=== PATIENT | male | born 1970 | race Caucasian/White ===

== ENCOUNTER 2016-07-15 14:33 | Emergency (ER) | payer BC ==
[~2016-07-15] VITALS: Ht 177.8 cm; Wt 76.2 kg
[~2016-07-15 14:33] MED LIST: ATEN-173 PO; OMEP20TA PO
[2016-07-15 14:37] VITALS: BP 171/97; PULSE 106; TEMP 36.8; O2SAT 100; Ht 177.8 cm; Wt 76.2 kg
--- NOTE | 2016-07-15 15:03 | DIAGNOSTIC IMAGING REPORT ---
RIGHT SHOULDER 3 VIEWS CLINICAL HISTORY: Right shoulder pain. FINDINGS: 3 views of the right shoulder are obtained. No prior studies are available for comparison at the time of dictation. The skeletal structures are well mineralized. No fracture is seen. The glenohumeral and acromioclavicular joints are well-maintained. Minimal arthritic change is seen in the greater tuberosity of the humeral head. The overlying soft tissues are within normal limits. Partially imaged right upper lobe lung parenchyma appears clear. IMPRESSION: No acute bony abnormality is seen in the right shoulder. Electronically signed by: Joon Tafoya M.D. 07/15/2016 3:01 PM Dictated Date/Time: 07/15/2016 3:00 PM
[2016-07-15] MEDS ORDERED: TRAM-10 PO (15:20)
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
== END 2016-07-15 15:27 | disposition home or self-care (01) ==
LOC: C.EDB 14:35 → C.EDD 15:27
DX: M25.511 Pain in right shoulder (principal); I10 Essential (primary) hypertension; D50.9 Iron deficiency anemia, unspecified; F17.200 Nicotine dependence, unspecified, uncomplicated

== ENCOUNTER 2017-06-11 07:32 | Emergency (ER) | payer BC ==
[~2017-06-11] VITALS: Ht 175.3 cm; Wt 76.1 kg
[2017-06-11 07:40] VITALS: TEMP 36.4; Ht 175.3 cm; Wt 76.1 kg
--- NOTE | 2017-06-11 08:16 | DIAGNOSTIC IMAGING REPORT ---
R HAND MIN 3 VIEWS ROUTINE CLINICAL HISTORY: 47 years-old Male presenting with fall on Fri; possible R MC fx. TECHNIQUE: Frontal, oblique, and lateral views of the right hand were obtained. COMPARISON: None. FINDINGS: Ossific fragment along the dorsum at the level of the carpus with overlying soft tissue swelling characteristic of a triquetral fracture. No malalignment. No advanced degenerative change. No radiographic soft tissue abnormality. IMPRESSION: Findings characteristic of a triquetral fracture. No malalignment of the carpus. Electronically signed by: Marcio Macias M.D. 06/11/2017 8:15 AM Dictated Date/Time: 06/11/2017 8:13 AM
[2017-06-11] MEDS ORDERED: HYDR-5688 PO (09:07)
[2017-06-11 09:42] VITALS: BP 164/100; PULSE 94; O2SAT 98
--- NOTE | 2017-06-13 07:39 | EMERGENCY ROOM VISIT NOTE ---
ED Visit Note First contact with patient: 07:46 Chief Complaint: I broke my right arm. History of Present Illness: Mr. Hendrix is a 47-year-old white male who ambulates into the ED reporting of right arm fracture. Patient reports 2 days ago he slipped and fell on ice. He reports she injured his right wrist. He reports he was seen at an urgent care center shortly after the injury and was told he had a fracture in his hand. He reports he was told to come to the emergency department for further evaluation and care. They discharged him in a Velcro like splint. Currently patient is complaining of a sharp and throbbing pain over the posterior aspect of the hand in the area of the fourth and fifth metacarpal. He rates his discomfort 10/10. His pain is nonradiating. His pain worsens with palpation, flexion and extension of the fourth and fifth MCP joint and all movements of the wrist. He has not identified any alleviating factors related to the pain. He reports she has not taken a medication for pain prior to arrival at the hospital. He denies any associated symptoms including elbow pain , forearm pain, hand weakness/numbness/tingling. Additionally he denies any previous significant injuries or surgeries to the wrist. Review of Systems: As noted above in history of present illness. Past Medical History: Hypertension, GI bleed, peptic ulcer disease, anemia, and status post unspecified surgery. Current Medications: Patient denies. Allergies to Medications: Patient denies. Social History: Patient is currently employed; he feels safe in his home environment; he admits to tobacco and alcohol use. Physical Examination: Vital Signs: Date Time Temp Pulse Resp B/P (MAP) Pulse Ox O2 Delivery O2 Flow Rate FiO2 06/11/17 09:42 94 18 164/100 98 06/11/17 07:40 36.4 102 18 196/109 100 Room Air GENERAL: 47-year-old male in mild to moderate distress due to pain, nontoxic- appearing, afebrile and hypertensive. NEUROLOGICAL: Awake, alert and oriented to person, place and time. Answering questions appropriately and following commands. Normal gait. Good hand eye coordination. No focal motor sensory deficits. SKIN: Warm, dry and pink. No soft tissue trauma noted. RIGHT UPPER EXTREMITY: No gross bony deformity. No tenderness in the elbow or forearm. Moderate tenderness over the posterior wrist and posterior hand in the area of the carpometacarpal area associated with the fourth and fifth carpals. There is mild swelling in this area and early bruising. I do not appreciate any bony deformity or crepitus. Patient refused to do range of motion exercises of the wrist but with the risk stabilize she had full range of motion in flexion and extension of all MCP and PIP joints. Throughout the hand the scene was warm and pink and capillary refill was brisk. He is able to distinguish light sensations through all dermatomes of the fingers. ED Course: Patient is assessed as noted above. Patient's medication list was reviewed. Patient was offered pain medication and refused; he was given ice for pain and swelling. Right Hand X-Rays: Were reviewed by myself and read by the radiologist and shows an ossification fragment along the dorsum at the level of the carpus overlying soft tissue swelling characteristics of a triquetral fracture. Patient was placed in a volar Ortho-Glass splint. Patient was educated about today's findings and instructed on his treatment plan ; he verbalized understanding and agreement with this plan. Clinical Impression: Right triquetral fracture. Patient's blood pressure: Elevated. Blood pressure disposition: Follow-up with primary care provider. Disposition: Patient discharged home in stable condition; prior to departure he was reassessed and subjectively reported he was feeling better and rated his discomfort 8/10. Plan: Comfort measures including rest, ice, splint use and a sliding pain medication scale of ibuprofen, acetaminophen and [place] were discussed with the patient. Patient's name was checked in the state database and no red flags were noted. He was given appropriate narcotic precautions. Patient was encouraged to follow-up with [facility] for specialty care and treatment. Patient was encouraged return ED for worsening/uncontrolled pain, uncontrolled swelling, hand/finger weakness/numbness/tingling or any new/concerning symptoms.
== END 2017-06-11 09:43 | disposition home or self-care (01) ==
LOC: C.EDB 07:34 → C.EDA 09:43
DX: S62.111A Displaced fracture of triquetrum [cuneiform] bone, right wrist, initial encounter for closed fracture (principal); W00.9XXA Unspecified fall due to ice and snow, initial encounter; I10 Essential (primary) hypertension; F17.200 Nicotine dependence, unspecified, uncomplicated; F10.99 Alcohol use, unspecified with unspecified alcohol-induced disorder